=== PATIENT | male | born 1955 | race Caucasian/White ===

== ENCOUNTER 2019-07-27 09:58 | Inpatient (IN) | payer MEDICARE, OTHER ==
--- NOTE | 2019-07-27 10:33 | ED ---
General Adult HPI - General Chief complaint: Urogenital Stated complaint: Trouble Urinating Time Seen by Provider: 07/27/19 10:05 Source: patient Mode of arrival: ambulatory Limitations: no limitations - History of Present Illness Initial comments: Patient is 64-year-old male presenting to the emergency department with a chief complaint of inability to urinate. Patient reports he has decreased her urine outflow for about a week. Patient reports he developed gradual onset of obstructive urinary symptoms with dribbling and increased urine strained in order to expel any urine. Patient reports he is only able to urinate while standing up but very small amounts. Patient reports his most recent prostate exam was about 10 years ago. Patient never had a colonoscopy. Patient denies hematuria, hematochezia or melena. Patient does report some suprapubic tenderness but states that is due to the urine collecting the bladder. Patient doesn't have a history of kidney stones or any renal problems. Patient denies night sweats fever or chills. Patient reports decreased fluid intake due to his obstructive symptoms. - Related Data Allergies Allergy/AdvReac Type Severity Reaction Status Date / Time No Known Allergies Allergy Verified 07/27/19 10:04 Review of Systems ROS Statement: Those systems with pertinent positive or pertinent negative responses have been documented in the HPI. ROS Other: All systems not noted in ROS Statement are negative. Past Medical History Past Medical History: Hypertension History of Any Multi-Drug Resistant Organisms: None Reported Past Surgical History: Back Surgery Past Psychological History: No Psychological Hx Reported Smoking Status: Former smoker Past Alcohol Use History: Daily Past Drug Use History: None Reported General Exam Limitations: no limitations General appearance: alert, in no apparent distress Head exam: Present: atraumatic, normocephalic, normal inspection Eye exam: Present: normal appearance, PERRL, EOMI Pupils: Present: normal accommodation ENT exam: Present: normal exam, normal oropharynx, mucous membranes moist Neck exam: Present: normal inspection, full ROM Respiratory exam: Present: normal lung sounds bilaterally Cardiovascular Exam: Present: regular rate, normal rhythm, normal heart sounds GI/Abdominal exam: Present: soft, tenderness (Suprapubic). Absent: guarding, rebound, rigid Extremities exam: Present: normal inspection, full ROM Back exam: Present: normal inspection, full ROM. Absent: CVA tenderness (R), CVA tenderness (L) Neurological exam: Present: alert, oriented X3 Psychiatric exam: Present: normal affect, normal mood Skin exam: Present: warm, intact, normal color Course Vital Signs 07/27/19 07/27/19 09:59 11:08 Temperature 97.1 F L Pulse Rate 57 L 55 L Respiratory 18 18 Rate Blood Pressure 148/80 148/87 O2 Sat by Pulse 96 96 Oximetry Medical Decision Making - Medical Decision Making Patient is 64-year-old male presenting to emergency Department with a chief complaint of inability to urinate. Physical examination is indicative of some suprapubic tenderness and is otherwise unremarkable. exam negative. Bladder scan shows over a liter of fluid before Wayne catheter was inserted. After Wayne placement, patient was able to extract over a liter of fluid. CBC and UA are unremarkable. CMP shows elevated creatinine levels at 8.5. BUN of 70. GFR of 6. Patient is having an obstructive uropathy causing acute kidney injury. Patient will be admitted for further medical management. Patient reports much relieved after Wayne placement and is having minimal discomfort at this time. Case discussed physician. Admitting physician is Dr. Montgomery. Urology and nephrology consulted - Lab Data Result diagrams: 07/27/19 10:56 07/27/19 10:56 Lab Results 07/27/19 07/27/19 07/27/19 Range/Units 10:56 10:56 10:56 WBC 9.3 (3.8-10.6) k/uL RBC 5.00 (4.30-5.90) m/uL Hgb 15.6 (13.0-17.5) gm/dL Hct 46.7 (39.0-53.0) % MCV 93.4 (80.0-100.0) fL MCH 31.3 (25.0-35.0) pg MCHC 33.5 (31.0-37.0) g/dL RDW 12.6 (11.5-15.5) % Plt Count 232 (150-450) k/uL Sodium 139 (137-145) mmol/L Potassium 3.4 L (3.5-5.1) mmol/L Chloride 97 L (98-107) mmol/L Carbon Dioxide 25 (22-30) mmol/L Anion Gap 17 mmol/L BUN 70 H (9-20) mg/dL Creatinine 8.25 H* (0.66-1.25) mg/dL Est GFR (CKD-EPI)AfAm 7 (>60 ml/min/1.73 sqM) Est GFR (CKD-EPI)NonAf 6 (>60 ml/min/1.73 sqM) Glucose 120 H (74-99) mg/dL Calcium 8.4 (8.4-10.2) mg/dL Total Bilirubin 0.7 (0.2-1.3) mg/dL AST 48 (17-59) U/L ALT 60 (21-72) U/L Alkaline Phosphatase 83 (38-126) U/L Total Protein 7.2 (6.3-8.2) g/dL Albumin 4.2 (3.5-5.0) g/dL Urine Color Yellow Urine Appearance Clear (Clear) Urine pH 5.5 (5.0-8.0) Ur Specific Old[place] 1.014 (1.001-1.035) Urine Protein Negative (Negative) Urine Glucose (UA) Negative (Negative) Urine Ketones Negative (Negative) Urine Blood Negative (Negative) Urine Nitrite Negative (Negative) Urine Bilirubin Negative (Negative) Urine Urobilinogen <2.0 (<2.0) mg/dL Ur Leukocyte Esterase Negative (Negative) Disposition Clinical Impression: Acute kidney injury, Obstructive uropathy Disposition: ADMITTED IP TO THIS HOSP Condition: Stable Additional Instructions: Patient will be admitted Is patient prescribed a controlled substance at d/c from ED?: No Referrals: Shaw Castano Jr, [Primary Care Provider] - 1-2 days Time of Disposition: 12:06
[2019-07-27 11:06] LABS: HCT 46.7 % (39.0-53.0); HGB 15.6 gm/dL (13.0-17.5); MCH 31.3 pg (25.0-35.0); MCHC 33.5 g/dL (31.0-37.0); MCV 93.4 fL (80.0-100.0); Mean Platelet Volume 7.3; Platelet Count 232 k/uL (150-450); RDW 12.6 % (11.5-15.5); WBC 9.3 k/uL (3.8-10.6)
[2019-07-27 11:21] LABS: Albumin 4.2 g/dL (3.5-5.0); Calcium 8.4 mg/dL (8.4-10.2); Potassium 3.4 mmol/L (3.5-5.1); Total Bilirubin 0.7 mg/dL (0.2-1.3); Total Protein 7.2 g/dL (6.3-8.2)
[2019-07-27 11:24] LABS: Appearance,Urine Clear (Clear); Bilirubin,Urine Negative (Negative); Blood,Urine Negative (Negative); Color,Urine Yellow; Glucose,Urine (UA) Negative (Negative); Ketones,Urine Negative (Negative); Leukocyte Esterase,Urine Negative (Negative); Nitrite,Urine Negative (Negative); PH, Urine 5.5 (5.0-8.0); Protein,Urine Negative (Negative); Specific Gravity,Urine 1.014 (1.001-1.035); Urobilinogen,Urine <2.0 mg/dL (<2.0)
[2019-07-27] MEDS ORDERED: NALOXONE 0.4 MG/ML 1 ML VIAL IV PRN (12:00)
[2019-07-27] MEDS ORDERED: MORPHINE SULFATE 4 MG/ML SYRINGE IV PRN (12:00)
[2019-07-27] MEDS ORDERED: ONDANSETRON 4 MG/2 ML VIAL IVP PRN (12:00)
[2019-07-27] MEDS ORDERED: ACETAMINOPHEN TAB 325 MG TAB PO PRN (12:00)
[2019-07-27] MEDS ORDERED: oxyCODONE-APAP 5-325MG 1 EACH TAB PO PRN (12:00)
[2019-07-27] MEDS ORDERED: HYDROcodone/APAP 5-325MG 1 EACH TAB PO PRN (12:00)
[2019-07-27] MEDS: SODIUM CHLORIDE 0.9% 1,000 ML IV SCH (12:28)
[2019-07-27] MEDS ORDERED: PNEUMOCOCCAL VACC-PNEUMOVAX 23 25 MCG/0.5 ML VIAL IM ONE (13:39)
[2019-07-28] MEDS: SODIUM CHLORIDE 0.9% 1,000 ML IV SCH ×2 (05:25→13:14)
[2019-07-28 07:55] LABS: Calcium 8.4 mg/dL (8.4-10.2); Potassium 3.2 mmol/L (3.5-5.1)
--- NOTE | 2019-07-28 09:08 | US ---
EXAMINATION TYPE: US kidneys/renal and bladder DATE OF EXAM: 07/28/2019 COMPARISON: NONE CLINICAL HISTORY: Renal failure. Patient admitted because he was unable to void. EXAM MEASUREMENTS: Right Kidney: 13.3 x 6.2 x 6.1 cm Left Kidney: 14.3 x 6.8 x 5.7 cm Right Kidney: Possible ill-defined midpole 1.1 cm calculus, kidney measures large Left Kidney: Kidney measures large Bladder: Decompressed due to Wayne catheter placement Cortical medullary different maintained. No hydronephrosis of either kidney. No nephrolithiasis of th e left kidney. Kidneys measure large bilaterally. IMPRESSION: 1. There is shadowing seen without definitive measurable calculus of the right kidney. 1.1 cm nonobst ructing calculus is suspected. No hydronephrosis of either kidney. 2. Nonvisualization of the urinary bladder due to Wayne catheter placement and decompression. 3. Kidneys incidentally are noted to symmetrically measure larger in size.
[2019-07-28] MEDS: POTASSIUM CHLORIDE ER 20 MEQ TAB.ER PO SCH ×3 (10:34→13:14)
[2019-07-28 10:58] VITALS: BMI 36.2
--- NOTE | 2019-07-28 11:20 | P.PN ---
Subjective Patient is seen in follow-up for acute kidney injury. Creatinine was 8.25 on admission yesterday and is 1.1 today. Etiology is urinary retention. Oral intake is good. No vomiting or diarrhea. Urine output 7.5 L in the last 24 hours. Vital signs are stable. General: The patient appeared well nourished and normally developed. HEENT: Head exam is unremarkable. Neck is without jugular venous distension. LUNGS: Lungs are clear to auscultation and percussion. Breath sounds decreased. HEART: Rate and Rhythm are regular. First and second heart sounds normal. No murmurs, rubs or gallops. ABDOMEN: Abdominal exam reveals normal bowel sounds. Non-tender and non- distended. No evidence of peritonitis. EXTREMITITES: No clubbing, cyanosis, or edema. Objective - Vital Signs Vital signs: Vital Signs Temp 97.9 F 07/28/19 07:00 Pulse 68 07/28/19 07:00 Resp 18 07/28/19 07:00 BP 137/81 07/28/19 07:00 Pulse Ox 96 07/28/19 07:00 Intake & Output 07/27/19 07/28/19 07/28/19 18:59 06:59 18:59 Intake Total 420 950 118 Output Total 5500 2000 Balance -5080 -1050 118 Weight 117.934 kg 117.934 kg Intake: Intake, IV Titration 950 Amount Sodium Chloride 0.9% 1, 950 000 ml @ 75 mls/hr IV . [id number] [facility] Rx#:[id number] Oral 420 118 Output: Urine 5500 2000 Uretheral (Wayne) 2400 2000 Other: Voiding Method Indwelling Catheter - Labs CBC & Chem 7: 07/27/19 10:56 07/28/19 06:48 Labs: Abnormal Lab Results - Last 24 Hours (Table) 07/27/19 07/28/19 Range/Units 10:56 06:48 Potassium 3.4 L 3.2 L (3.5-5.1) mmol/L Chloride 97 L (98-107) mmol/L Carbon Dioxide 33 H (22-30) mmol/L BUN 70 H 28 H (9-20) mg/dL Creatinine 8.25 H* (0.66-1.25) mg/dL Glucose 120 H 103 H (74-99) mg/dL Assessment and Plan Plan: Assessment: 1. Acute kidney injury secondary to urinary retention. Creatinine 8.25 on admission and is 1.1 today. No hydronephrosis noted on kidney ultrasound. UA benign. 2. Urinary retention status post Wayne catheter placement. 3. Hypokalemia secondary to postobstructive diuresis. Plan: Maintain normal saline at 75 mL an hour. Replace potassium. 60 mg once today. Repeat electrolytes in the morning. Add Flomax. Urology consultation pending.
--- NOTE | 2019-07-28 13:30 | P.HPIM ---
History of Present Illness H&P Date: 07/28/19 Chief Complaint: Urine retention Is is a pleasant 64-year-old white male well-known to my partner. He came emergency room yesterday after not being able to urinate. He reports that starting on Wednesday after a awake for his brother, he had several alcoholic beverages, began experiencing trouble urinating. He reports that over the next several days it worsened and that he had quit drinking fluids as much as possible due to this. By July 27, as pain discomfort and issues are bad enough came emergency room. Wayne catheter is inserted, over 1 L of urine was expelled. Laboratory studies show a creatinine of 8.25. Due to this severely abnormal kidney function is urinary retention, Wayne catheter was left in place, and he was admitted for further evaluation. Today the patient denies any chest pains compression, shortness breath. His urine bag is to gravity, and is blood-tinged urine, and dark in quality. Review of Systems All systems: negative Past Medical History Past Medical History: Hypertension, Pneumonia Additional Past Medical History / Comment(s): Pt had a wall fall on him and he suffered a fractured back and L lung pneumothorax, occasional back pain History of Any Multi-Drug Resistant Organisms: None Reported Past Surgical History: Back Surgery Additional Past Surgical History / Comment(s): 2 rods (13inches) in back, jaw fracture with repair. Past Anesthesia/Blood Transfusion Reactions: Family History of Problems w/ Anesthesia Additional Past Anesthesia/Blood Transfusion Reaction / Comment(s): Pt states he tolerates anesthesia but had distant cousins on mother's side of family with malignant hypertension. Pt has never been tested. Smoking Status: Former smoker - Past Family History Father Family Medical History: CVA/TIA Additional Family Medical History / Comment(s): Father at the age of 73 yrs from CVA-throat paralysis and starved. Mother Family Medical History: Cancer Additional Family Medical History / Comment(s): Mother of female cancer at the age of 87yrs. Medications and Allergies Home Medications Medication Instructions Recorded Confirmed Type Bisoprol/Hydrochlorothiazide [Ziac 1 tab PO DAILY 07/27/19 07/27/19 History 5-6.25 MG] Hydrocodone/Acetaminophen [[place] 1 tab PO TID PRN 07/27/19 07/27/19 History 10-325] Allergies Allergy/AdvReac Type Severity Reaction Status Date / Time No Known Allergies Allergy Verified 07/27/19 12:14 Physical Exam Vitals: Vital Signs Temp Pulse Resp BP Pulse Ox 07/28/19 07:00 97.9 F 68 18 137/81 96 07/28/19 06:59 17 07/28/19 01:07 98.6 F 60 16 113/69 97 07/27/19 19:55 98.1 F 66 16 144/69 94 L 07/27/19 14:55 17 07/27/19 14:00 98.9 F 55 L 17 161/77 99 Intake and Output 07/27/19 07/28/19 07/28/19 22:59 06:59 14:59 Intake Total 515 675 118 Output Total 600 1999 Balance -85 -1325 118 Intake: Intake, IV Titration 275 675 Amount Sodium Chloride 0.9% 1, 275 675 000 ml @ 75 mls/hr IV . [id number] [facility] Rx#:[id number] Oral 240 118 Output: Urine 600 1999 Uretheral (Wayne) 1999 Other: Voiding Method Indwelling Catheter Indwelling Catheter Weight 117.934 kg GENERAL: Well-appearing, well-nourished and in no acute distress. He is resting in his hospital bed. HEAD: Atraumatic, normocephalic. EYES: Pupils equal round and reactive to light, extraocular movements intact, sclera anicteric, conjunctiva are normal. ENT:nares patent, oropharynx clear without exudates. Moist mucous membranes. NECK: Normal range of motion, supple without lymphadenopathy or JVD, no thyrome andre LUNGS: Breath sounds clear to auscultation bilaterally and equal. No wheezes rales or rhonchi. HEART: Regular rate and rhythm without murmurs, rubs or gallops.S1S2 Normal ABDOMEN: Soft, nontender, normoactive bowel sounds. No guarding, no rebound. No masses appreciated. EXTREMITIES: Normal range of motion, no pitting or edema. No clubbing or cyanosis. NEUROLOGICAL: Cranial nerves II through XII grossly intact. Normal speech, normal gait. PSYCH: Normal mood, normal affect. SKIN: Warm, Dry, normal turgor, no rashes or lesions noted. Results CBC & Chem 7: 07/27/19 10:56 07/28/19 06:48 Labs: Abnormal Lab Results - Last 24 Hours (Table) 07/28/19 Range/Units 06:48 Potassium 3.2 L (3.5-5.1) mmol/L Carbon Dioxide 33 H (22-30) mmol/L BUN 28 H (9-20) mg/dL Glucose 103 H (74-99) mg/dL US - abdomen: report reviewed Thrombosis Risk Factor Assmnt - DVT/VTE Prophylaxis DVT/VTE Prophylaxis: Contraindicated - See note (Actively bleeding from the urethra) - Choose All That Apply Any of the Below Risk Factors Present?: Yes Each Factor Represents 1 point: Obesity (BMI >25) Other Risk Factors: Yes Each Risk Factor Represents 2 Points: Age 61-74 years Other congenital or acquired thrombophilia - If yes, enter type in comment: No Thrombosis Risk Factor Assessment Total Risk Factor Score: 3 Thrombosis Risk Factor Assessment Level: Moderate Risk Assessment and Plan (1) Urolithiasis Current Visit: Yes Status: Acute Code(s): N20.9 - URINARY CALCULUS, UNSPECIFIED SNOMED Code(s): 30466473 (2) Spinal arthrodesis present Current Visit: Yes Status: Acute Code(s): Z98.1 - ARTHRODESIS STATUS SNOMED Code(s): 98258419169990 (3) Chronic back pain Current Visit: Yes Status: Acute Code(s): M54.9 - DORSALGIA, UNSPECIFIED; G89.29 - OTHER CHRONIC PAIN SNOMED Code(s): 287709857 (4) Acute kidney injury Current Visit: Yes Status: Acute Code(s): N17.9 - ACUTE KIDNEY FAILURE, UNSPECIFIED SNOMED Code(s): 46654927 (5) Obstructive uropathy Current Visit: Yes Status: Acute Code(s): N13.9 - OBSTRUCTIVE AND REFLUX UROPATHY, UNSPECIFIED SNOMED Code(s): 5790851 Plan: Nephrology and urology been consult. We'll wait on the recommendations. Continue IV fluids. I will discontinue Percocet, and morphine, and continue [place] as needed for pain. He'll be reevaluated in the next 24 hours most likely for discharge.
--- NOTE | 2019-07-28 14:36 | P.GSCN ---
History of Present Illness Consult date: 07/28/19 Reason for Consult: Urinary retention Requesting physician: Agapito Montgomery History of present illness: The patient is a 64-year-old white male with an unremarkable urologic history. Specifically, he denies any prior history of UTIs or urolithiasis. However, for the past month, he has noted increased difficulty voiding. He denies dysuria, hematuria, and incontinence. His stream became progressively weaker to the point that he was unable to void for approximately 14 hours prior to presenting to the emergency room. A Wayne catheter was placed, with return of over 1 L of urine, and he was noted to have acute renal failure. He was subsequently admitted. Although I cannot find records, my recollection from talking to the ER physician is that approximately 2 L of urine was obtained when the Wayne was placed. Since the time of admission, his urine output has been significant consistent with post-obstructive diuresis. His serum creatinine level has normalized. Review of Systems - Constitutional Denies chills, Denies fever - Genitourinary Reports as per HPI Past Medical History Past Medical History: Hypertension, Pneumonia Additional Past Medical History / Comment(s): Pt had a wall fall on him and he suffered a fractured back and L lung pneumothorax, occasional back pain History of Any Multi-Drug Resistant Organisms: None Reported Past Surgical History: Back Surgery Additional Past Surgical History / Comment(s): 2 rods (13inches) in back, jaw fracture with repair. Past Anesthesia/Blood Transfusion Reactions: Family History of Problems w/ Anesthesia Additional Past Anesthesia/Blood Transfusion Reaction / Comm: Pt states he t olerates anesthesia but had distant cousins on mother's side of family with malignant hypertension. Pt has never been tested. Smoking Status: Former smoker - Past Family History Father Family Medical History: CVA/TIA Additional Family Medical History / Comment(s): Father at the age of 73 yrs from CVA-throat paralysis and starved. Mother Family Medical History: Cancer Additional Family Medical History / Comment(s): Mother of female cancer at the age of 87yrs. Medications and Allergies Home Medications Medication Instructions Recorded Confirmed Type Bisoprol/Hydrochlorothiazide [Ziac 1 tab PO DAILY 07/27/19 07/27/19 History 5-6.25 MG] Hydrocodone/Acetaminophen [[place] 1 tab PO TID PRN 07/27/19 07/27/19 History 10-325] Allergies Allergy/AdvReac Type Severity Reaction Status Date / Time No Known Allergies Allergy Verified 07/27/19 12:14 Surgical - Exam Vital Signs Temp Pulse Resp BP Pulse Ox 97.1 F L 57 L 18 148/80 96 07/27/19 09:59 07/27/19 09:59 07/27/19 09:59 07/27/19 09:59 07/27/19 09:59 - General well developed, well nourished, no distress - Respiratory normal respiratory effort - Abdomen Abdomen: soft, non tender, no guarding, no rigid, no rebound - Genitourinary normal penis with no external lesions, testicles non-tender - Rectum Rectum: normal sphincter tone, no masses, other (prostate moderately enlarged but smooth) - Psychiatric oriented to time, oriented to person, oriented to place, speech is normal, memory intact Results - Labs 07/27/19 10:56 07/28/19 06:48 Abnormal Lab Results - Last 24 Hours (Table) 07/28/19 Range/Units 06:48 Potassium 3.2 L (3.5-5.1) mmol/L Carbon Dioxide 33 H (22-30) mmol/L BUN 28 H (9-20) mg/dL Glucose 103 H (74-99) mg/dL Diabetes panel 07/28/19 Range/Units 06:48 Sodium 142 (137-145) mmol/L Potassium 3.2 L (3.5-5.1) mmol/L Chloride 102 (98-107) mmol/L Carbon Dioxide 33 H (22-30) mmol/L BUN 28 H (9-20) mg/dL Creatinine 1.10 (0.66-1.25) mg/dL Glucose 103 H (74-99) mg/dL Calcium 8.4 (8.4-10.2) mg/dL Calcium panel 07/28/19 Range/Units 06:48 Calcium 8.4 (8.4-10.2) mg/dL Pituitary panel 07/28/19 Range/Units 06:48 Sodium 142 (137-145) mmol/L Potassium 3.2 L (3.5-5.1) mmol/L Chloride 102 (98-107) mmol/L Carbon Dioxide 33 H (22-30) mmol/L BUN 28 H (9-20) mg/dL Creatinine 1.10 (0.66-1.25) mg/dL Glucose 103 H (74-99) mg/dL Calcium 8.4 (8.4-10.2) mg/dL Adrenal panel 07/28/19 Range/Units 06:48 Sodium 142 (137-145) mmol/L Potassium 3.2 L (3.5-5.1) mmol/L Chloride 102 (98-107) mmol/L Carbon Dioxide 33 H (22-30) mmol/L BUN 28 H (9-20) mg/dL Creatinine 1.10 (0.66-1.25) mg/dL Glucose 103 H (74-99) mg/dL Calcium 8.4 (8.4-10.2) mg/dL - Imaging US - abdomen: report reviewed Assessment and Plan (1) Retention of urine, unspecified Current Visit: Yes Status: Acute Code(s): R33.9 - RETENTION OF URINE, UNSPECIFIED SNOMED Code(s): 314367959 Plan: The patient appears to have acute renal failure secondary to urinary retention. Ultrasound shows a possible renal calculus, but no evidence of hydronephrosis. The serum creatinine level has normalized. I explained to Mr. oCrnell that when his bladder is distended to the degree his was interfaced time for the bladder to regain muscle tone. For this reason, he will be discharged home with a Wayne catheter. He will follow up with me in 1 week, as he prefers intermittent self-catheterization over an indwelling Wayne catheter. He will be taught nor office to self catheterize, and supply arrangements will be made. He will undergo urodynamic testing in several weeks. If his bladder has normal tone, his BPH will be addressed either medically or via a TURP. Time with Patient: Greater than 30
[2019-07-28] MEDS ORDERED: TAMSULOSIN 0.4 MG CAP.ER.24H PO SCH (18:30)
--- NOTE | 2019-07-28 19:03 | P.NPCON ---
History of Present Illness - Reason for Consult acute renal failure - History of Present Illness Reason for consultation: GLADYS HPI: Patient is an 79 y/o M seen in renal consulation for GLADYS. Patient presented to the hospital with difficulty with urination. Admits to dribbling and only small amounts of urine at a time. Had suprapubic tenderness as well. No hematuria or dysuria. Creatinine was 8.25 on admission and is 1.1 today. Wayne was placed in ER and over 7 L of urine has been obtained since. He feels better today. Denies prior personal or family history of renal disease. No use of NSAIDs. Appetite is good. No nausea, vomiting or diarrhea. No edema. Hemodynamically stable. Vital signs are stable. General: The patient appeared well nourished and normally developed. HEENT: Head exam is unremarkable. Neck is without jugular venous distension. LUNGS: Lungs are clear to auscultation and percussion. Breath sounds decreased. HEART: Rate and Rhythm are regular. First and second heart sounds normal. No murmurs, rubs or gallops. ABDOMEN: Abdominal exam reveals normal bowel sounds. Non-tender and non- distended. No evidence of peritonitis. EXTREMITITES: No clubbing, cyanosis, or edema. Past Medical History Past Medical History: Hypertension, Pneumonia Additional Past Medical History / Comment(s): Pt had a wall fall on him and he suffered a fractured back and L lung pneumothorax, occasional back pain History of Any Multi-Drug Resistant Organisms: None Reported Past Surgical History: Back Surgery Additional Past Surgical History / Comment(s): 2 rods (13inches) in back, jaw fracture with repair. Past Anesthesia/Blood Transfusion Reactions: Family History of Problems w/ Anesthesia Additional Past Anesthesia/Blood Transfusion Reaction / Comment(s): Pt states he tolerates anesthesia but had distant cousins on mother's side of family with malignant hypertension. Pt has never been tested. Smoking Status: Former smoker - Past Family History Father Family Medical History: CVA/TIA Additional Family Medical History / Comment(s): Father at the age of 73 yrs from CVA-throat paralysis and starved. Mother Family Medical History: Cancer Additional Family Medical History / Comment(s): Mother of female cancer at the age of 87yrs. Medications and Allergies Home Medications Medication Instructions Recorded Confirmed Type Bisoprol/Hydrochlorothiazide [Ziac 1 tab PO DAILY 07/27/19 07/27/19 History 5-6.25 MG] Hydrocodone/Acetaminophen [[place] 1 tab PO TID PRN 07/27/19 07/27/19 History 10-325] Allergies Allergy/AdvReac Type Severity Reaction Status Date / Time No Known Allergies Allergy Verified 07/27/19 12:14 Physical Exam Vitals: Vital Signs Temp Pulse Resp BP Pulse Ox 07/28/19 15:00 98.9 F 71 17 125/70 95 07/28/19 07:00 97.9 F 68 18 137/81 96 07/28/19 06:59 17 07/28/19 01:07 98.6 F 60 16 113/69 97 07/27/19 19:55 98.1 F 66 16 144/69 94 L Intake and Output 07/28/19 07/28/19 07/28/19 06:59 14:59 22:59 Intake Total 675 590 Output Total 1999 Balance -1325 590 Intake: Intake, IV Titration 675 Amount Sodium Chloride 0.9% 1, 675 000 ml @ 75 mls/hr IV . [id number] [facility] Rx#:[id number] Oral 590 Output: Urine 1999 Uretheral (Wayne) 1999 Other: Voiding Method Indwelling Catheter Weight 117.934 kg Results - Lab Results Most recent lab results Calcium 8.4 mg/dL (8.4-10.2) 07/28/19 06:48 07/27/19 10:56 07/28/19 06:48 Assessment and Plan Plan: Assessment: 1. Acute kidney injury secondary to urinary retention. Creatinine 8.25 on admission and is 1.1 today. No hydronephrosis noted on kidney ultrasound. UA benign. 2. Urinary retention status post Wayne catheter placement. 3. Hypokalemia secondary to postobstructive diuresis. Plan: Maintain normal saline at 75 mL an hour. Replace potassium. 60 mg once today. Repeat electrolytes in the morning. Add Flomax. Urology consultation pending. Thank you for the consultation. I will continue to follow the patient with you during his hospital stay.
[2019-07-29 07:57] LABS: African American GFR (CKD) >90 (>60 ml/min/1.73 sqM); Anion Gap 3 mmol/L; Blood Urea Nitrogen 19 mg/dL (9-20); Calcium 8.3 mg/dL (8.4-10.2); Carbon Dioxide 33 mmol/L (22-30); Chloride 104 mmol/L (98-107); Glucose 105 mg/dL (74-99); Non-African American GFR(CKD) >90 (>60 ml/min/1.73 sqM); Potassium 3.6 mmol/L (3.5-5.1); Sodium 140 mmol/L (137-145)
[2019-07-29] MEDS: SODIUM CHLORIDE 0.9% 1,000 ML IV SCH (08:00)
[2019-07-29 08:20] VITALS: BP 138/75; PULSE 73; RESP 16; TEMP 98
--- NOTE | 2019-07-29 10:56 | P.PN ---
Progress Note - Text Progress Note Date: 07/29/19 Mr. Cornell is feeling well. His Wayne catheter is draining clear yellow urine, and his creatinine level this morning is 0.82. He may be discharged home with the Wayne catheter. He will follow up with me next week. At that time, he will be taught to self catheterize. If the urinary retention persists, he will undergo urodynamic testing. Please notify me if I can be of any further assistance.
--- NOTE | 2019-07-29 12:30 | P.DS ---
Providers Date of admission: 07/27/19 12:03 Expected date of discharge: 07/29/19 Attending physician: Agapito Montgomery Consults: 07/27/19 12:07 Consult Physician Stat Consulting Provider: Maryjo Manriquez Consult Reason/Comments: Obstructive uropathy, acute kidney injury Do you want consulting provider notified?: Yes 07/27/19 12:08 Consult Physician Stat Consulting Provider: Leif Hodge Consult Reason/Comments: Obstructive uropathy, acute kidney injury Do you want consulting provider notified?: Yes Primary care physician: Shaw Castano - Paulie Diagnosis(es) (1) Urolithiasis Current Visit: Yes Status: Acute (2) Spinal arthrodesis present Current Visit: Yes Status: Acute (3) Chronic back pain Current Visit: Yes Status: Acute (4) Acute kidney injury Current Visit: Yes Status: Acute (5) Obstructive uropathy Current Visit: Yes Status: Acute Hospital Course: This is a pleasant 64-year-old white male well-known to my partner. He came emergency room yesterday after not being able to urinate. He reports that starting on Wednesday after a awake for his brother, he had several alcoholic beverages, began experiencing trouble urinating. He reports that over the next several days it worsened and that he had quit drinking fluids as much as possible due to this. By July 27, as pain discomfort and issues are bad enough came emergency room. Wayne catheter is inserted, over 1 L of urine was expelled. Laboratory studies show a creatinine of 8.25. Due to this severely abnormal kidney function is urinary retention, Wayne catheter was left in place, and he was admitted for further evaluation. Today the patient denies any chest pains compression, shortness breath. His urine bag is to gravity, and is blood-tinged urine, and dark in quality. 07/29/2019: Chest exam Wayne catheter. Urology and seen him and recommended Wayne catheter to go home with him in follow-up in outpatient for training for self catheterizations. He is currently on Flomax. He reports no pain, no chest pain pressure is running nausea or vomiting. His labs remain normal nephrology is cleared him for discharge. He'll go home with follow-up in the office next week. Patient Condition at Discharge: Stable Plan - Discharge Summary Discharge Rx Participant: No New Discharge Prescriptions: New Tamsulosin [Flomax] 0.4 mg PO PC-SUPPER #30 cap.er.24h Acetaminophen Tab [Tylenol] 650 mg PO Q6HR PRN tab PRN Reason: Mild Pain Or Fever > 100.5 Continue Hydrocodone/Acetaminophen [[place] 10-325] 1 tab PO TID PRN PRN Reason: Pain Bisoprol/Hydrochlorothiazide [Ziac 5-6.25 MG] 1 tab PO DAILY Discharge Medication List Bisoprol/Hydrochlorothiazide [Ziac 5-6.25 MG] 1 tab PO DAILY 07/27/19 [History] Hydrocodone/Acetaminophen [[place] 10-325] 1 tab PO TID PRN 07/27/19 [History] Acetaminophen Tab [Tylenol] 650 mg PO Q6HR PRN tab 07/29/19 [Rx] Tamsulosin [Flomax] 0.4 mg PO PC-SUPPER #30 cap.er.24h 07/29/19 [Rx] Follow up Appointment(s)/Referral(s): Leif Hodge MD [STAFF PHYSICIAN] - 1 Week Shaw Castano Jr, DO [Primary Care Provider] - 1-2 days Discharge Disposition: HOME SELF-CARE
== END 2019-07-29 14:21 | disposition home or self-care (01) | DRG 684 ==
LOC: EC 09:58 → 4SSUR 12:03
PROVIDERS: ADMIT Family Medicine; ATTEND Family Medicine
DX: N17.9 Acute kidney failure, unspecified (principal); E87.6 Hypokalemia; T50.2X5A Adverse effect of carbonic-anhydrase inhibitors, benzothiadiazides and other diuretics, initial encounter; G89.29 Other chronic pain; I10 Essential (primary) hypertension; K21.9 Gastro-esophageal reflux disease without esophagitis; N13.9 Obstructive and reflux uropathy, unspecified; N20.9 Urinary calculus, unspecified; Z82.3 Family history of stroke; Z87.891 Personal history of nicotine dependence; Z98.1 Arthrodesis status; Z80.49 Family history of malignant neoplasm of other genital organs; M54.9 Dorsalgia, unspecified; Z87.01 Personal history of pneumonia (recurrent); Z79.899 Other long term (current) drug therapy
CPT/HCPCS: 36415; 51702; 51798; 76770; 80048; 80053; 81003; 83735; 85027; 90732; 99284

== ENCOUNTER 2019-10-01 10:03 | Emergency (ER) | payer MEDICARE ==
[2019-10-01 10:11] VITALS: RESP 16; TEMP 97.9
--- NOTE | 2019-10-01 10:40 | ED ---
General Adult HPI - General Chief complaint: Urogenital Stated complaint: catheter problem Time Seen by Provider: 10/01/19 10:10 Source: patient, RN notes reviewed, old records reviewed Mode of arrival: ambulatory Limitations: no limitations - History of Present Illness Initial comments: This is a 64-year-old male who presents emergency Department for urinary retention. Patient states that he self caths on a normal basis but was unable to do so today. Patient states the last time he was able to catheterize himself was 3 AM. Patient states that discomfort in the bladder and he said last time this occurred he had a urinary tract infection. Patient denies any vomiting nausea or diarrhea. Patient denies any upper abdominal pain. Patient states the pain is strictly in the suprapubic region. Patient has no fever chills. - Related Data Home Medications Medication Instructions Recorded Confirmed Bisoprol/Hydrochlorothiazide [Ziac 1 tab PO DAILY 07/27/19 07/27/19 5-6.25 MG] Hydrocodone/Acetaminophen [[place] 1 tab PO TID PRN 07/27/19 07/27/19 10-325] Previous Rx's Medication Instructions Recorded Acetaminophen Tab [Tylenol] 650 mg PO Q6HR PRN tab 07/29/19 Tamsulosin [Flomax] 0.4 mg PO PC-SUPPER #30 cap.er.24h 07/29/19 Sulfamethox-Tmp 800-160Mg [Bactrim 1 each PO Q12HR #20 tab 10/01/19 DS 800-160 mg] Allergies Allergy/AdvReac Type Severity Reaction Status Date / Time No Known Allergies Allergy Verified 10/01/19 10:11 Review of Systems ROS Statement: Those systems with pertinent positive or pertinent negative responses have been documented in the HPI. ROS Other: All systems not noted in ROS Statement are negative. Past Medical History Past Medical History: Hypertension, Pneumonia Additional Past Medical History / Comment(s): Pt had a wall fall on him and he suffered a fractured back and L lung pneumothorax, occasional back pain History of Any Multi-Drug Resistant Organisms: None Reported Past Surgical History: Back Surgery Additional Past Surgical History / Comment(s): 2 rods (13inches) in back, jaw fracture with repair. Past Anesthesia/Blood Transfusion Reactions: Family History of Problems w/ Anesthesia Additional Past Anesthesia/Blood Transfusion Reaction / Comment(s): Pt states he tolerates anesthesia but had distant cousins on mother's side of family with malignant hypertension. Pt has never been tested. Past Psychological History: No Psychological Hx Reported Smoking Status: Former smoker Past Alcohol Use History: None Reported Past Drug Use History: None Reported - Past Family History Father Family Medical History: CVA/TIA Additional Family Medical History / Comment(s): Father at the age of 73 yrs from CVA-throat paralysis and starved. Mother Family Medical History: Cancer Additional Family Medical History / Comment(s): Mother of female cancer at the age of 87yrs. General Exam - General Exam Comments Initial Comments: GENERAL: Patient is well-developed and well-nourished. Patient is nontoxic and well- hydrated and is in mild distress. ENT: Neck is soft and supple. No significant lymphadenopathy is noted. Oropharynx is clear. Moist mucous membranes. Neck has full range of motion without eliciting any pain. EYES: The sclera were anicteric and conjunctiva were pink and moist. Extraocular movements were intact and pupils were equal round and reactive to light. Eyelids were unremarkable. PULMONARY: Unlabored respirations. Good breath sounds bilaterally. No audible rales rhonchi or wheezing was noted. CARDIOVASCULAR: There is a regular rate and rhythm without any murmurs gallops or rubs. ABDOMEN: Soft and nontender with normal bowel sounds. SKIN: Skin is clear with no lesions or rashes and otherwise unremarkable. NEUROLOGIC: Patient is alert and oriented x3. Cranial nerves II through XII are grossly intact. Motor and sensory are also intact. Normal speech, volume and content. Symmetrical smile. MUSCULOSKELETAL: Normal extremities with adequate strength and full range of motion. LYMPHATICS: No significant lymphadenopathy is noted PSYCHIATRIC: Normal psychiatric evaluation. Limitations: no limitations Course Vital Signs 10/01/19 10:09 Temperature 97.9 F Pulse Rate 99 Respiratory 16 Rate Blood Pressure 154/91 O2 Sat by Pulse 97 Oximetry Medical Decision Making - Medical Decision Making We try to place a Wayne and the patient because at 535 mL of urine in his bladder. Patient had some resistance with the foot but the Wayne was unable to be Wayne placed though it was put in up to the help of the Wayne. Dr. Hodge contacted he came in his cell the patient he needed to do a cystoscopy because he was unable to place a Wayne. He stated that he found a false lumen and the prostate and that was the issue. Patient currently does have a Wayne. because her follow-up the patient in a week. - Lab Data Lab Results 10/01/19 Range/Units 12:00 Urine Color Yellow Urine Appearance Clear (Clear) Urine pH 5.0 (5.0-8.0) Ur Specific [place] 1.014 (1.001-1.035) Urine Protein Trace H (Negative) Urine Glucose (UA) Negative (Negative) Urine Ketones Negative (Negative) Urine Blood Moderate H (Negative) Urine Nitrite Positive (Negative) Urine Bilirubin Negative (Negative) Urine Urobilinogen <2.0 (<2.0) mg/dL Ur Leukocyte Esterase Moderate H (Negative) Urine RBC 146 H (0-5) /hpf Urine WBC 18 H (0-5) /hpf Urine Bacteria Moderate H (None) /hpf Hyaline Casts 1 (0-2) /lpf Urine Mucus Few H (None) /hpf Disposition Clinical Impression: Urinary retention Disposition: HOME SELF-CARE Condition: Good Instructions (If sedation given, give patient instructions): Urinary Tract Infection in Men (ED) Prescriptions: Sulfamethox-Tmp 800-160Mg [Bactrim DS 800-160 mg] 1 each PO Q12HR #20 tab Is patient prescribed a controlled substance at d/c from ED?: No Referrals: Leif Hodge MD [STAFF PHYSICIAN] - 10/09/19 Time of Disposition: 12:26
[2019-10-01 12:19] LABS: Appearance,Urine Clear (Clear); Bacteria,Urine Moderate /hpf; Bilirubin,Urine Negative (Negative); Blood,Urine Moderate (Negative); Color,Urine Yellow; Glucose,Urine (UA) Negative (Negative); Hyaline Casts,Urine 1 /lpf (0-2); Ketones,Urine Negative (Negative); Leukocyte Esterase,Urine Moderate (Negative); Mucus,Urine Few /hpf; Nitrite,Urine Positive (Negative); Protein,Urine Trace (Negative); RBC,Urine 146 /hpf (0-5); Specific Gravity,Urine 1.014 (1.001-1.035); Urobilinogen,Urine <2.0 mg/dL (<2.0); WBC,Urine 18 /hpf (0-5)
[2019-10-01 12:42] VITALS: BP 134/70; PULSE 82
--- NOTE | 2019-10-01 16:18 | P.GSCN ---
History of Present Illness Consult date: 10/01/19 Reason for Consult: Urinary retention Requesting physician: Umang Singletary History of present illness: The patient is a 64-year-old white male hospitalized in July 2019 with a one month history of difficulty voiding. His stream became progressively weaker to the point that he was unable to void for approximately 14 hours prior to presenting to the emergency room. A Wayne catheter was placed, with return of 1-2 L of urine, and he was noted to have acute renal failure. His serum creatinine level has normalized. He was initially managed with an indwelling Wayne catheter. Urodynamic testing has shown a lack of bladder tone. He was subsequently taught to perform intermittent self-catheterization, but has experienced difficulty catheterizing himself today. Attempts by the ER staff to insert a catheter were also unsuccessful. I am consulted for this reason. Review of Systems - Constitutional Denies chills, Denies fever - Genitourinary Reports dysuria, Denies hematuria Past Medical History Past Medical History: Hypertension, Pneumonia Additional Past Medical History / Comment(s): Pt had a wall fall on him and he suffered a fractured back and L lung pneumothorax, occasional back pain History of Any Multi-Drug Resistant Organisms: None Reported Past Surgical History: Back Surgery Additional Past Surgical History / Comment(s): 2 rods (13inches) in back, jaw fracture with repair. Past Anesthesia/Blood Transfusion Reactions: Family History of Problems w/ Anesthesia Additional Past Anesthesia/Blood Transfusion Reaction / Comm: Pt states he tolerates anesthesia but had distant cousins on mother's side of family with malignant hypertension. Pt has never been tested. Past Psychological History: No Psychological Hx Reported Smoking Status: Former smoker Past Alcohol Use History: None Reported Past Drug Use History: None Reported - Past Family History Father Family Medical History: CVA/TIA Additional Family Medical History / Comment(s): Father at the age of 73 yrs from CVA-throat paralysis and starved. Mother Family Medical History: Cancer Additional Family Medical History / Comment(s): Mother of female cancer at the age of 87yrs. Medications and Allergies Home Medications Medication Instructions Recorded Confirmed Type Bisoprol/Hydrochlorothiazide [Ziac 1 tab PO DAILY 07/27/19 07/27/19 History 5-6.25 MG] Hydrocodone/Acetaminophen [[place] 1 tab PO TID PRN 07/27/19 07/27/19 History 10-325] Acetaminophen Tab [Tylenol] 650 mg PO Q6HR PRN tab 07/29/19 Rx Tamsulosin [Flomax] 0.4 mg PO PC-SUPPER #30 cap.er.24h 07/29/19 Rx Sulfamethox-Tmp 800-160Mg [Bactrim 1 each PO Q12HR #20 tab 10/01/19 Rx DS 800-160 mg] Allergies Allergy/AdvReac Type Severity Reaction Status Date / Time No Known Allergies Allergy Verified 10/01/19 10:11 Surgical - Exam Vital Signs Temp Pulse Resp BP Pulse Ox 97.9 F 99 16 154/91 97 10/01/19 10:09 10/01/19 10:09 10/01/19 10:09 10/01/19 10:09 10/01/19 10:09 - General well developed, well nourished, no distress - Respiratory normal respiratory effort - Abdomen Abdomen: soft, non tender, no guarding, no rigid, no rebound - Genitourinary normal penis with no external lesions, testicles non-tender - Psychiatric oriented to time, oriented to person, oriented to place, speech is normal, memory intact Assessment and Plan (1) Retention of urine, unspecified Status: Acute Code(s): R33.9 - RETENTION OF URINE, UNSPECIFIED SNOMED Code(s): 234638672 Plan: The penis was prepped and draped sterilely. A 16-Faroese coud-tip Wayne catheter was inserted. Some resistance was met within the proximal urethra, and the catheter at this point would not irrigate. Bedside flexible cystoscopy was performed, revealing an intraprostatic false passage. A Wayne catheter was placed over a Glidewire. The patient will be discharged home with the catheter and follow-up in one week.
--- NOTE | 2019-10-01 16:21 | P.PCN ---
Date of Procedure: 10/01/19 Preoperative Diagnosis: Urinary retention, urethral false passage Postoperative Diagnosis: Same Procedure(s) Performed: Cystoscopy with insertion of Wayne catheter Anesthesia: none Surgeon: Leif Hodge Estimated Blood Loss (ml): 0 Pathology: none sent Condition: stable Disposition: no change Indications for Procedure: The patient is a 64-year-old white male who performs intermittent self- catheterization for urinary retention. He has been unable to self catheterize today, and attempts to place a Wayne catheter have been unsuccessful. Operative Findings: Intraprostatic urethral false passage Description of Procedure: The penis was prepped and draped sterilely. The 16-[place] flexible cystoscope was passed through the urethra under direct vision. The anterior urethra appeared normal. Within the prostatic floor was a false passage. The tip of the cystoscope was directed anteriorly, and the cystoscope was advanced into the bladder. A 0.035 inch Glidewire was passed through the cystoscope, and coiled within the bladder. A small incision was made in the tip of a 16-[place] Irish Wayne catheter, which was then passed into the bladder over the wire. Approximately 700 mL of clear yellow urine drained through the catheter, which was connected to gravity drainage.
== END 2019-10-01 12:43 | disposition home or self-care (01) ==
LOC: EC 10:03
DX: R33.9 Retention of urine, unspecified (principal); I10 Essential (primary) hypertension; Z87.891 Personal history of nicotine dependence; Z79.899 Other long term (current) drug therapy
CPT/HCPCS: 99284; 52000; 51798; 81001; C1769; 51703

== ENCOUNTER → 2019-11-09 | Outpatient (CLI) | payer MEDICARE ==
[2019-11-09 10:17] LABS: Basophils # (A) 0.1 k/uL (0-0.2); Basophils % (A) 1 %; Eosinophils # (A) 0.3 k/uL (0-0.7); Eosinophils % (A) 4 %; HCT 50.5 % (39.0-53.0); HGB 16.1 gm/dL (13.0-17.5); Lymphocytes # (A) 1.7 k/uL (1.0-4.8); Lymphocytes % (A) 29 %; MCH 29.9 pg (25.0-35.0); MCHC 31.9 g/dL (31.0-37.0); MCV 93.8 fL (80.0-100.0); Mean Platelet Volume 7.6; Monocytes # (A) 0.3 k/uL (0-1.0); Monocytes % (A) 5 %; Neutrophils # (A) 3.4 k/uL (1.3-7.7); Neutrophils % (A) 58 %; Platelet Count 254 k/uL (150-450); RBC 5.38 m/uL (4.30-5.90); WBC 5.8 k/uL (3.8-10.6)
[2019-11-09 10:34] LABS: African American GFR (CKD) >90 (>60 ml/min/1.73 sqM); Anion Gap 7 mmol/L; Blood Urea Nitrogen 19 mg/dL (9-20); Carbon Dioxide 30 mmol/L (22-30); Chloride 100 mmol/L (98-107); Glucose 111 mg/dL (74-99); Non-African American GFR(CKD) >90 (>60 ml/min/1.73 sqM); Potassium 5.1 mmol/L (3.5-5.1); Sodium 137 mmol/L (137-145)
== END | disposition home or self-care (01) ==
LOC: LABPAT 08:55
PROVIDERS: ATTEND Urology
DX: Z01.812 Encounter for preprocedural laboratory examination (principal); N40.1 Benign prostatic hyperplasia with lower urinary tract symptoms; N13.8 Other obstructive and reflux uropathy; R33.9 Retention of urine, unspecified
CPT/HCPCS: 36415; 80048; 84153; 85025; 87086

== ENCOUNTER 2019-11-16 05:45 | Day surgery (SDC) | payer SELFPAY ==
--- NOTE | 2019-11-05 09:44 | P.GSHP ---
History of Present Illness H&P Date: 11/02/19 Chief Complaint: Inability to void The patient is a 64-year-old white male admitted with urinary retention in July 2019. He reported a one month history of progressive voiding difficulty prior to that admission. Approximately 2 L of urine was obtained upon Wayne catheter placement. He had renal failure at the time of admission, which resolved with Wayne catheter drainage. Urodynamic testing in August 2019 showed no detrusor function. Cystoscopy revealed an obstructing prostate with a bilobar configuration. The patient was taught to perform intermittent self-catheterization using a coud tip catheter, but he has trace required cystoscopy due to inability to catheterize. Most recently, he was found to have an intraprostatic urethral false passage. He has elected to undergo a transurethral resection of the prostate (TURP). He understands that the urinary retention may persist, but at least he should be able to self catheterized without difficulty. - Constitutional Constitutional: Denies chills, Denies fever - Genitourinary (Male) Genitourinary: Reports as per HPI, Reports dysuria, Denies hematuria Past Medical History Past Medical History: Hypertension, Pneumonia Additional Past Medical History / Comment(s): Pt had a wall fall on him and he suffered a fractured back and L lung pneumothorax, occasional back pain History of Any Multi-Drug Resistant Organisms: None Reported Past Surgical History: Back Surgery Additional Past Surgical History / Comment(s): 2 rods (13inches) in back, jaw fracture with repair. Past Anesthesia/Blood Transfusion Reactions: Family History of Problems w/ Anesthesia Additional Past Anesthesia/Blood Transfusion Reaction / Comment(s): Pt states he tolerates anesthesia but had distant cousins on mother's side of family with malignant hypertension. Pt has never been tested. Past Psychological History: No Psychological Hx Reported Smoking Status: Former smoker Past Alcohol Use History: None Reported Past Drug Use History: None Reported - Past Family History Father Family Medical History: CVA/TIA Additional Family Medical History / Comment(s): Father at the age of 73 yrs from CVA-throat paralysis and starved. Mother Family Medical History: Cancer Additional Family Medical History / Comment(s): Mother of female cancer at the age of 87yrs. Medications and Allergies Home Medications Medication Instructions Recorded Confirmed Type Bisoprol/Hydrochlorothiazide [Ziac 1 tab PO DAILY 07/27/19 07/27/19 History 5-6.25 MG] Hydrocodone/Acetaminophen [[place] 1 tab PO TID PRN 07/27/19 07/27/19 History 10-325] Acetaminophen Tab [Tylenol] 650 mg PO Q6HR PRN tab 07/29/19 Rx Tamsulosin [Flomax] 0.4 mg PO PC-SUPPER #30 cap.er.24h 07/29/19 Rx Sulfamethox-Tmp 800-160Mg [Bactrim 1 each PO Q12HR #20 tab 10/01/19 Rx DS 800-160 mg] Allergies Allergy/AdvReac Type Severity Reaction Status Date / Time No Known Allergies Allergy Verified 10/01/19 10:11 Surgical - Exam - General well developed, well nourished, no distress - Respiratory normal respiratory effort, clear to auscultation - Cardiovascular Rhythm: regular Abnormal Heart Sounds: no systolic murmur, no diastolic murmur - Abdomen Abdomen: soft, non tender, no guarding, no rigid, no rebound - Genitourinary normal penis with no external lesions, testicles non-tender - Rectum Rectum: normal sphincter tone, no masses, other (Prostate moderately enlarged but smooth) - Psychiatric oriented to time, oriented to person, oriented to place, speech is normal, memory intact Assessment and Plan (1) Retention of urine, unspecified Status: Acute Code(s): R33.9 - RETENTION OF URINE, UNSPECIFIED SNOMED Code(s): 713857901 Plan: The patient appears to lack bladder function. His urinary retention has persisted despite taking Flomax. He was originally scheduled to undergo repeat urodynamic testing in November 2019, but due to the inability to self catheterize he has elected to undergo a TURP. Potential risks were discussed, including anesthesia, bleeding, infection, retrograde ejaculation, incontinence, erectile dysfunction, and vesical neck contracture. He may require admission post- operatively, likely for one night. The patient expressed an understanding with regard to possible complications and outcome. Following a lengthy discussion, as a result of shared decision making, the patient has elected to proceed with a TURP.
[2019-11-13 15:37] VITALS: BMI 34.8
[~2019-11-16 05:45] MED LIST: DEXAMETHASONE SOD PHOSPHATE 10 MG/ML 1 ML VIAL IV ONE; LIDOCAINE 1% (10MG/ML) FOR IV START INTRADERMA PRN; MIDAZOLAM 2 MG/2 ML VIAL IV PRN; fentaNYL (PF) 50 MCG/ML 2 ML AMP IV PRN
[2019-11-16] MEDS ORDERED: GENTAMICIN 140 MG in SODIUM CHLORIDE 0.9% 100 ML IVPB ONE (06:00)
[2019-11-16] MEDS: LACTATED RINGERS 1,000 ML IV SCH ×2 (06:33→20:31)
[2019-11-16] MEDS ORDERED: ONDANSETRON 4 MG/2 ML VIAL IVP ONE (06:45)
[2019-11-16] MEDS ORDERED: MIDAZOLAM 2 MG/2 ML VIAL ONE (07:30)
[2019-11-16] MEDS ORDERED: PROPOFOL 10 MG/ML 20 ML VIAL IV ONE (07:30)
[2019-11-16] MEDS ORDERED: LIDOCAINE 1% INJ 10MG/ML (20 ML MDV) ONE (07:30)
[2019-11-16] MEDS ORDERED: fentaNYL (PF) 50 MCG/ML 2 ML AMP ONE (07:30)
[2019-11-16] MEDS ORDERED: KETAMINE 10 MG/ML 20 ML VIAL ONE (07:30)
[2019-11-16] MEDS ORDERED: LACTATED RINGERS 1,000 ML IV ONE (10:30)
--- NOTE | 2019-11-16 12:32 | P.OP ---
Date of Procedure: 11/16/19 Preoperative Diagnosis: Urinary retention secondary to BPH Postoperative Diagnosis: Same Procedure(s) Performed: Cystoscopy, bipolar transurethral resection of prostate (TURP) Anesthesia: spinal Surgeon: Leif Hodge Estimated Blood Loss (ml): 250 IV fluids (ml): 1,200 Pathology: other (Prostate chips) Condition: stable Disposition: PACU Indications for Procedure: The patient is a 64-year-old white male admitted with urinary retention in July 2019. He reported a one month history of progressive voiding difficulty prior to that admission. Approximately 2 L of urine was obtained upon Wayne catheter placement. He had renal failure at the time of admission, which resolved with Wayne catheter drainage. Urodynamic testing in August 2019 showed no detrusor function. Cystoscopy revealed an obstructing prostate with a bilobar configuration. The patient was taught to perform intermittent self-catheterization using a coud tip catheter, but he has trace required cystoscopy due to inability to catheterize. Most recently, he was found to have an intraprostatic urethral false passage. He has elected to undergo a transurethral resection of the prostate (TURP). He understands that the urinary retention may persist, but at least he should be able to self catheterized without difficulty. Operative Findings: Extremely enlarged prostate, with complete visual occlusion. Description of Procedure: The patient was taken in the operating room and placed in the dorsolithotomy position after being given a spinal anesthetic. The external genitalia was prepped and draped sterilely. The 25-Beninese ACMI resectoscope sheath was introduced into the bladder under direct vision. The prostate was visually occluded, with a bilobar configuration. The prostate was particularly long, and passage of the resectoscope into the bladder was difficult.. The bladder was inspected. Both ureteral orifices were of normal anatomic location and configuration. No tumors or foreign bodies were seen. Using the bipolar cutting loop, the floor of the prostate was initially resected to allow passage of the resectoscope into the bladder without difficulty and also to improve water flow. Next, the lateral lobes were resected. The floor of the prostate was then resected, proximal to the verumontanum. Lastly, any remaining anterior tissue was resected. The remaining apical tissue was then carefully resected. The resection was extensive, removing a considerable amount of tissue, leaving the prostatic fossa wide open. The prostatic fossa was then carefully examined, and any areas of bleeding were controlled with electrocautery. Adequate hemostasis was attained. The resectoscope was withdrawn into the bulbous urethra. The external urinary sphincter remained intact. The [email or web address] evacuator was used to remove all prostate chips from the bladder. These were saved and sent for pathologic examination. The resectoscope was removed, and a 20 Ben[place], 3-Way Wayne catheter was placed. The return was essentially clear. Continuous bladder irrigation was started using 0.9 normal saline. The patient tolerated the procedure well was taken to the recovery room in stable condition.
[2019-11-16] MEDS ORDERED: MAG HYDROX/AL HYDROX/SIMETH 30 ML CUP PO PRN (12:33)
[2019-11-16] MEDS ORDERED: ACETAMINOPHEN TAB 325 MG TAB PO PRN (12:33)
[2019-11-16] MEDS ORDERED: BELLADONNA-OPIUM 16.2-60 MG 1 EACH SUPP RECTAL PRN (12:33)
[2019-11-16] MEDS: DEXTROSE 5%-0.45% NACL 1,000 ML IV SCH (14:28)
[2019-11-16] MEDS: SODIUM CHLORIDE 0.9% IRRIG 3,000 ML BAG IRRIGATION SCH (14:44)
[2019-11-16] MEDS: DOCUSATE 100 MG CAP PO SCH (21:10)
[2019-11-16] MEDS: HYDROcodone/APAP 10-325MG 1 EACH TAB PO PRN (21:10)
[2019-11-16] MEDS: SULFAMETHOX-TMP 800-160MG 1 EACH TAB PO SCH (21:10)
[2019-11-17] MEDS: DEXTROSE 5%-0.45% NACL 1,000 ML IV SCH (01:02)
[2019-11-17] MEDS: SODIUM CHLORIDE 0.9% IRRIG 3,000 ML BAG IRRIGATION SCH ×2 (02:24→05:51)
[2019-11-17] MEDS: HYDROcodone/APAP 10-325MG 1 EACH TAB PO PRN (04:29)
--- NOTE | 2019-11-17 08:01 | P.DS ---
Providers Attending physician: Leif Hodge Primary care physician: [facility] Course: The patient who has been on urine retention underwent a TURP by yesterday. He was kept in the hospital overnight with continuous irrigation because of the large size of the prostate. Urine is clear this morning. I will discontinue the irrigation. If the urine remains clear he'll be discharged home later today. He'll go home with the catheter until next week. He has pain med icine at home for chronic back problems. His diet is regular his activities Limited. Return to the office in one week for catheter removal. Postoperative instructions been given. His condition is good. He'll resume his home medications Patient Condition at Discharge: Good Plan - Discharge Summary Discharge Rx Participant: No New Discharge Prescriptions: No Action Hydrocodone/Acetaminophen [[place] 10-325] 1 tab PO TID PRN PRN Reason: Pain Bisoprol/Hydrochlorothiazide [Ziac 5-6.25 MG] 1 tab PO DAILY Sulfamethox-Tmp 800-160Mg [Bactrim DS 800-160 mg] 1 each PO Q12HR #20 tab Ibuprofen [Motrin Ib] 600 mg PO Q8H PRN PRN Reason: Pain Discharge Medication List Bisoprol/Hydrochlorothiazide [Ziac 5-6.25 MG] 1 tab PO DAILY 07/27/19 [History] Hydrocodone/Acetaminophen [[place] 10-325] 1 tab PO TID PRN 07/27/19 [History] Sulfamethox-Tmp 800-160Mg [Bactrim DS 800-160 mg] 1 each PO Q12HR #20 tab 10/01/19 [Rx] Ibuprofen [Motrin Ib] 600 mg PO Q8H PRN 11/13/19 [History] Follow up Appointment(s)/Referral(s): Ned Conley MD [STAFF PHYSICIAN] - 11/23/19 Activity/Diet/Wound Care/Special Instructions: home with peralta Discharge Disposition: HOME SELF-CARE
[2019-11-17 08:03] VITALS: BP 134/75; PULSE 72; RESP 16; TEMP 98.1
[2019-11-17] MEDS: SULFAMETHOX-TMP 800-160MG 1 EACH TAB PO SCH (08:48)
[2019-11-17] MEDS: DOCUSATE 100 MG CAP PO SCH (08:48)
[2019-11-17] MEDS ORDERED: BISOPROLOL-HCTZ 5-6.25 MG 1 EACH TAB PO SCH (09:00)
== END 2019-11-17 11:05 | disposition home or self-care (01) ==
LOC: OR 05:45 → 4SSUR 13:57 → OR 11-17 11:05
PROVIDERS: ATTEND Urology
DX: N40.1 Benign prostatic hyperplasia with lower urinary tract symptoms (principal); R33.8 Other retention of urine; N36.5 Urethral false passage; I10 Essential (primary) hypertension; Z87.01 Personal history of pneumonia (recurrent); Z87.891 Personal history of nicotine dependence; Z82.3 Family history of stroke; Z80.9 Family history of malignant neoplasm, unspecified; Z79.899 Other long term (current) drug therapy; Z79.1 Long term (current) use of non-steroidal anti-inflammatories (NSAID)
CPT/HCPCS: 88305; 52601; J2250; J1580; J1100; J0690; J2405; J2001; J3010; J2704